=== PATIENT | female | born 1975 | race Caucasian/White ===

== ENCOUNTER 2019-01-23 01:10 | Emergency (ER) | payer SELFPAY ==
[~2019-01-23] VITALS: Ht 154.9 cm; Wt 68.0 kg
[2019-01-23] MEDS ORDERED: SODIUM CHLORIDE 0.9% 1,000 ML IV ONE (03:01)
[2019-01-23 03:14] LABS: CLARITY URINE CLEAR (CLEAR); COLOR URINE YELLOW (YELLOW); KETONES URINE NEGATIVE (NEGATIVE); LEUKOCYTE ESTERASE URINE NEGATIVE (NEGATIVE); NITRITE URINE NEGATIVE (NEGATIVE); OCCULT BLOOD URINE 1+ (NEGATIVE); PROTEIN URINE NEGATIVE (NEGATIVE); SPECIFIC GRAVITY URINE 1.008 (1.005-1.030); UROBILINOGEN URINE 0.2 E.U./dL (0.2-1.0)
[2019-01-23] MEDS ORDERED: BACITRACIN ZINC OINT UDPKT TOP ONE (03:15)
[2019-01-23] MEDS ORDERED: TETANUS, DIPHTHERIA, PERTUSSIS VAC/PF 0.5ML (>7YR OLD) IM ONE (03:15)
[2019-01-23] MEDS ORDERED: LIDOCAINE HCL/PF 1% 10 MG/ML 5ML VIAL IJ ONE (03:15)
[2019-01-23] MEDS ORDERED: BACITRACIN 15GM TUBE TOP SCH (03:15)
[2019-01-23 03:29] LABS: *AMPHETAMINES SCREEN URINE NEGATIVE (NEGATIVE)
[2019-01-23 03:30] LABS: *BARBITURATES SCREEN URINE NEGATIVE (NEGATIVE); *BENZODIAZEPINES SCREEN URINE NEGATIVE (NEGATIVE); *COCAINE SCREEN URINE NEGATIVE (NEGATIVE); METHADONE URINE SCREEN NEGATIVE (NEGATIVE); OPIATES URINE SCREEN NEGATIVE (NEGATIVE); PHENCYCLIDINE URINE SCREEN NEGATIVE (NEGATIVE)
[2019-01-23 03:31] LABS: CANNABINOID URINE SCREEN NEGATIVE (NEGATIVE)
[2019-01-23 04:24] LABS: BASOPHILS % 0.8 % (0.0-2.0); EOSINOPHILS % 3.2 % (0.0-5.0); HEMATOCRIT. 40.2 % (36.0-48.0); HEMOGLOBIN. 13.6 g/dL (12.0-16.0); LYMPHOCYTES % 27.3 % (20.0-50.0); MEAN CORPUSCULAR HEMOGLOBIN 29.4 pg (28.0-32.0); MEAN CORPUSCULAR VOLUME 86.9 fL (81.0-99.0); MEAN PLATELET VOLUME 8.8 fl (7.4-10.4); MONOCYTES % 6.3 % (2.0-8.0); NEUTROPHILS % 62.4 % (40.0-76.0); PLATELET 271 x1000/uL (130-400); RED BLOOD CELL COUNT 4.63 mill/uL (4.2-5.4); RED CELL DISTRIBUTION WIDTH 14.6 % (11.6-14.6)
[2019-01-23 04:26] LABS: CHLORIDE 114 mEq/L (98-107)
[2019-01-23 04:32] LABS: ETHANOL BLOOD 215 mg/dL
[2019-01-23] MEDS ORDERED: CLONIDINE 0.2MG TABLET PO ONE (04:45)
[2019-01-23 06:20] VITALS: BP 104/72
== END 2019-01-23 06:25 | disposition home or self-care (01) ==
LOC: ER 01:23
DX: S01.81XA Laceration without foreign body of other part of head, initial encounter (principal); Z88.8 Allergy status to other drugs, medicaments and biological substances; X58.XXXA Exposure to other specified factors, initial encounter; Y93.89 Activity, other specified; Y92.89 Other specified places as the place of occurrence of the external cause; Y99.8 Other external cause status
CPT/HCPCS: 12011; 36415; 70450; 80053; 80305; 80320; 81003; 81025; 85025; 90471; 90715; 99284; A4217; J3490; J7030; Z7610; G0480

== ENCOUNTER 2019-01-31 11:09 | Emergency (ER) | payer SELFPAY ==
[~2019-01-31] VITALS: Ht 152.4 cm; Wt 59.0 kg
[2019-01-31 11:57] VITALS: BP 130/83
== END 2019-01-31 12:42 | disposition home or self-care (01) ==
LOC: ER 11:09
DX: Z48.00 Encounter for change or removal of nonsurgical wound dressing (principal)
CPT/HCPCS: 99281